=== PATIENT | male | born 1995 | race Caucasian/White ===

== ENCOUNTER 2017-04-15 03:57 | Emergency (ER) | payer SELFPAY ==
[~2017-04-15] VITALS: Ht 180.3 cm; Wt 59.1 kg
[2017-04-15 04:02] VITALS: BP 129/84
== END 2017-04-15 04:53 | disposition left against medical advice (07) ==
LOC: EMS 03:59
DX: F91.9 Conduct disorder, unspecified (principal); F15.10 Other stimulant abuse, uncomplicated; F17.210 Nicotine dependence, cigarettes, uncomplicated; Z88.5 Allergy status to narcotic agent; Z88.8 Allergy status to other drugs, medicaments and biological substances
CPT/HCPCS: 99283

== ENCOUNTER 2022-12-23 08:06 | Emergency (ER) | payer OTHER ==
[~2022-12-23] VITALS: Ht 180.3 cm; Wt 75.0 kg
[2022-12-23] MEDS ORDERED: OLAN5TAB52 PO (08:08)
[2022-12-23] MEDS ORDERED: LITH300C3 PO (08:11)
[2022-12-23 11:35] VITALS: BP 111/71
== END 2022-12-23 11:38 | disposition home or self-care (01) ==
LOC: EMS 08:07
DX: H61.22 Impacted cerumen, left ear (principal); F41.9 Anxiety disorder, unspecified; F17.210 Nicotine dependence, cigarettes, uncomplicated; F15.90 Other stimulant use, unspecified, uncomplicated; Z88.5 Allergy status to narcotic agent; Z88.8 Allergy status to other drugs, medicaments and biological substances
CPT/HCPCS: 99281; Z7502